=== PATIENT | male | born 1945 | race Caucasian/White ===

== ENCOUNTER 2016-12-22 15:59 | Emergency (ER) | payer OTHER ==
[2016-12-22 16:08] VITALS: TEMP 98.1
--- NOTE | 2016-12-22 16:52 | EDPHY ---
H & P Stated Complaint: Redness on L calf since Thursday; concern re: infection Time Seen by Provider: 12/22/16 16:49 HPI/ROS: HPI: This is a 71-year-old male who presents with Chief Complaint: Left calf redness Location: Left calf Quality: Redness Duration: 2 days Signs and Symptoms: + swelling, no pain, no shortness of breath, no chest pain, no fevers, no radiation, no weakness Timing: Rapidly worsening Severity: [id number] Context: Patient is here in [place] from [place] of state; drove over 8 hours; to help move his daughter. Thursday, noted left calf redness and swelling. Denies any injury. No animal scratch. Patient has type 2 diabetes managed by oral agents and peripheral neuropathy. Denies pain. Tetanus is up-to-date. Modifying Factors: Has not tried any [id number] medication Comment: ROS: Constitutional: No fever, no chills, no weight loss Eyes: No blurred vision Respiratory: No shortness of breath, no cough Cardiovascular: No chest pain Gastrointestinal: No nausea, no vomiting no diarrhea Genitourinary: No dysuria Extremities: No myalgias Neurologic: No weakness, no numbness Skin: No rashes Hematologic: No bruising, no bleeding MEDICAL/SURGICAL/SOCIAL HISTORY: Hyperlipidemia, hypertension, coronary artery disease status post CABG x2 stents , peripheral neuropathy, type 2 diabetes mellitus. Source: Patient, Family Exam Limitations: No limitations - Personal History Current Tetanus Diphtheria and Acellular Pertussis (TDAP): Yes - Medical/Surgical History Hx Diabetes: Yes Hx Cardiac Disease: Yes Other PMH: HTN. CAD. neuropathy - Social History Smoking Status: Never smoked - Physical Exam Exam: CONSTITUTIONAL: Pleasant adult male, accompanied by , awake and alert, no obvious distress HEENT: Atraumatic and normocephalic, PERRL, EOMI. Tympanic membranes clear. Oropharynx clear, no exudate and moist pink mucosa. Airway patent. No lymphadenopathy. No meningismus. Cardiovascular: Normal S1/S2, regular rate, regular rhythm, without murmur rub or gallop. PULMONARY/CHEST: Symmetrical and nontender. Clear to auscultation bilaterally Good air movement. No accessory muscle usage. ABDOMEN: Soft, nondistended, nontender, no rebound, no guarding, no peritoneal signs, no masses or organomegaly. No CVAT. EXTREMITIES: 2/2 pedal pulses, positive Homans sign left calf; left calf is twice the size of the right calf; mild erythema extending to ankle; warm to touch. no deformities, no clubbing, no cyanosis or edema. NEUROLOGICAL: no focal neuro deficits. GCS 15. Ambulatory without deficits. SKIN: Warm and dry, no erythema. no rash. Good capillary refill. Constitutional: Initial Vital Signs Temperature (C) 36.7 C 12/22/16 16:00 Heart Rate 64 12/22/16 16:00 Respiratory Rate 16 12/22/16 16:00 Blood Pressure 142/72 H 12/22/16 16:00 O2 Sat (%) 97 12/22/16 16:00 O2 Delivery Mode Room Air Allergies/Adverse Reactions: No Known Allergies Allergy (Unverified 12/22/16 16:01) Home Medications: Medication Instructions Recorded Aspirin [Aspirin 81mg (*)] 81 mg PO DAILY 12/22/16 Cephalexin [Keflex (*)] 500 mg PO Q6H #28 cap 12/22/16 Felodipine [Plendil 5 MG (*)] 5 mg PO 12/22/16 Gabapentin [Neurontin 400 MG (*)] 600 mg PO HS 12/22/16 Irbesartan/Hydrochlorothiazide 1 each PO 12/22/16 [Avalide 300-12.5 mg Tablet] Metoprolol Succinate Xr [Toprol Xl 50 mg PO DAILY 12/22/16 50 mg (*)] Naproxen [Naprosyn] 500 mg PO 12/22/16 Omeprazole [Prilosec 20 mg] 20 mg PO DAILY 12/22/16 Pioglitazone HCl [Actos] 30 mg PO 12/22/16 Rosuvastatin Calcium [Crestor 20mg 20 mg PO DAILY 12/22/16 (*)] glipiZIDE [Glucotrol] 5 mg PO DAILY 12/22/16 Medical Decision Making - Diagnostics Imaging Results: Imaging Impressions Extremity Venous Study 12/22/16 16:48 Impression: 1. There is no sonographic evidence of deep or superficial vein thrombosis in the left lower extremity. 2. There is a Dunne cyst in the posteromedial popliteal fossa, measuring up to 5.6 cm in greatest diameter. Findings were discussed with Shiela Neal PA-C at 17:27, on 12/22/2016. ED Course/Re-evaluation: Left lower extremity ultrasound and oral medications ordered. No signs of neurovascular compromise/tenting of skin/compartment syndrome/ extremities and joints examined above and below area of concern and are neurovascularly intact. Called by radiologist ultrasound does not show DVT; positive Dunne cyst of 5.6 cm. Given patient Keflex; reluctant to start Bactrim to cover for community- acquired MRSA as taking ARB/diuretic and unsure of renal function. Early cellulitis detected; will cover with Keflex initially with close wound check in 3 days with primary care provider Advised to wear compression stockings, rest and elevate left lower extremity as much as possible over the next few days. Discussed findings of Dunne cyst; patient is from out of town; denies any symptoms of knee pain; but will follow up with Orthopedics if needed Differential Diagnosis: Differential diagnosis includes but is not limited to cellulitis, deep venous thrombosis, thrombophlebitis. Departure - Departure Disposition: Home, Routine, Self-Care Clinical Impression: Synovial cyst of popliteal space [Dunne], left knee, Cellulitis of left leg without foot Condition: Good Instructions: Bakers Cyst (ED), Cellulitis (ED) Additional Instructions: Wear compression stockings and elevate your extremities over the next few days. Take all antibiotics as indicated. If you're not improved in the next 3-4 days or if redness worsens; follow up with your primary care provider. Referrals: MANJINDER ALVAREZ [Other] - As per Instructions Prescriptions: Cephalexin [Keflex (*)] 500 mg PO Q6H #28 cap
[2016-12-22 17:27] VITALS: BP 130/62; PULSE 57; RESP 15; O2SAT 94
[2016-12-22] MEDS ORDERED: CEPHALEXIN 500 MG CAP PO ONE (17:30)
== END 2016-12-22 17:43 | disposition home or self-care (01) ==
DX: M71.21 Synovial cyst of popliteal space [Baker], right knee (principal); L03.116 Cellulitis of left lower limb; I10 Essential (primary) hypertension; I25.810 Atherosclerosis of coronary artery bypass graft(s) without angina pectoris; E11.9 Type 2 diabetes mellitus without complications; Z79.82 Long term (current) use of aspirin; Z95.5 Presence of coronary angioplasty implant and graft

== ENCOUNTER 2018-09-14 06:56 | Observation (INO) | payer OTHER | END 2018-09-15 18:17 | disposition home or self-care (01) | LOC: F2W 09:45 ==